=== PATIENT | male | born 1955 | race Caucasian/White ===

== ENCOUNTER 2019-04-15 07:42 | Outpatient (CLI) | payer OTHER, SELFPAY ==
--- NOTE | 2019-04-15 08:11 | CT_ITS ---
WS: [id number] CT scan of the chest without IV contrast, additional two-dimensional coronal and sagittal reconstruct ion was performed. 04/15/2019 Clinical Data: PULMONARY NODULE Comparison: PA and lateral chest, 04/11/2016 DLP: 982.36 mGy-cm All CT scans at [facility] use at least one of these dose optimization techniques: automat ed exposure control; mA and/or kV adjustment per patient size (includes targeted exams where dose is matched to clinical indication); or iterative reconstruction. Findings: There are 2 small nodules, one is in the right middle lobe seen best on axial image 29 of 62 measurin g 0.75 cm, the other in the lingula adjacent to the left heart border measuring 0.50 cm seen best on axial image 31 of 62. No masses or effusions are seen. The heart size is normal with no pericardial effusion. The pulmonar y arterial system and thoracic aorta demonstrate no abnormalities or dilatations. There is no axillar y or significant mediastinal adenopathy. The upper abdomen shows no abnormalities. 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 CT/CT chest wo con [id number] Impression: 1. 2 small nodules, one in the right middle lobe and the other in the lingula a nd recommend repeat CT chest in 6 months. 2. No acute cardiopulmonary disease is seen.
== END 2019-04-15 07:43 | disposition home or self-care (01) ==
LOC: RADWPI 07:46
PROVIDERS: PCP Nurse Practitioner; Visit Provider Nurse Practitioner
DX: R91.8 Other nonspecific abnormal finding of lung field (principal)
CPT/HCPCS: 71250

== ENCOUNTER → 2019-10-10 14:37 | Outpatient (BNVA) | payer OTHER, SELFPAY | PROVIDERS: PCP Nurse Practitioner; Visit Provider Nurse Practitioner Family | DX: M25.562 Pain in left knee (principal); S86.912A Strain of unspecified muscle(s) and tendon(s) at lower leg level, left leg, initial encounter; X58.XXXA Exposure to other specified factors, initial encounter; Z68.29 Body mass index [BMI] 29.0-29.9, adult; F17.220 Nicotine dependence, chewing tobacco, uncomplicated | CPT/HCPCS: 73562 ==

== ENCOUNTER 2019-10-27 23:48 | Emergency (ER) | payer OTHER, SELFPAY ==
[2019-10-27 23:48] VITALS: BP 136/78; PULSE 72; RESP 14; O2SAT 99
[2019-10-28 00:04] VITALS: BP 163/96; PULSE 111; RESP 18; TEMP 36.8; O2SAT 97; BMI 28.7
--- NOTE | 2019-10-28 00:33 | CTR_ITS ---
PROCEDURE INFORMATION: Exam: CT Head Without Contrast Exam date and time: 10/28/2019 12:36 AM Age: 64 years old Clinical indication: Injury or trauma; Injury history: Kicked by horse; Initial encounter; Blunt trauma (contusions or hematomas); Without loss of consciousness TECHNIQUE: Imaging protocol: Computed tomography of the head without contrast. Radiation optimization: All CT scans at this facility use at least one of these dose optimization techniques: automated exposure control; mA and/or kV adjustment per patient size (includes targeted exams where dose is matched to clinical indication); or iterative reconstruction. COMPARISON: No relevant prior studies available. RADIATION DOSE METRICS: Total DLP (mGy-cm): 868.26 FINDINGS: Brain: No acute intracranial hemorrhage or mass effect. No definite acute infarct by CT. Ventricles: Ventricle size is normal for age. Bones/joints: No definite acute skull fracture. Sinuses: Mild mucosal thickening in the left maxillary sinus. Included paranasal sinuses otherwise appear essentially clear. Mastoid air cells: No significant acute finding. Soft tissues: Evidence for soft tissue injury/scalp laceration in the left frontal and parietal regions. CT/CT head wo con* [id number] IMPRESSION: 1. No acute intracranial hemorrhage or mass effect. 2. Other findings discussed above. Radiation Dose CTDIVOL = (mGy): DLP = 868.26 (mGy-cm)
--- NOTE | 2019-10-28 00:48 | ED_ITS ---
HPI - Head Injury General: Chief complaint: Head Injury Stated complaint: head lac Time Seen by Provider: 10/28/19 00:30 Source: patient Mode of arrival: ambulatory Limitations: no limitations History of Present Illness: HPI Narrative: Patient was at his home in [facility] riding a horse when he got spooked and bucked him from the horse. Patient hit the ground with his head and does not know if the horse kicked him or what but he ended up sustaining 2 lacerations to the scalp. Patient has a linear laceration to the frontal center scalp, and a curved laceration to the left parietal area of the scalp. Patient recalls the event and denies any loss of consciousness. Patient does have a history of hypertension, alcohol use. Patient does report that he takes 1 alprazolam in the morning each day and did take a 7-1/2 hydrocodone prior to coming to the ER. Complaint: head injury Review of Systems General: Reports: 10 or more systems reviewed and unremarkable except in HPI and below Skin/Breast: Reports: other (scalp laceration) PFS ED PFSH: Medical History (Updated 10/28/19 @ 00:55 by MONI Del Cid) Strain of left knee Social History (Updated 10/10/19 @ 14:28 by Damaris Wagner LPN) Smoking and tobacco status: current every day smoker smokeless tobacco Physical Exam Const: COMMON NORMALS: no acute distress and patient oriented x3 GENERAL APPEARANCE: cooperative HENMT: COMMON NORMALS: normocephalic, TM's normal bilaterally and Normal external nose present HEAD & SCALP: normal to inspection and normocephalic NOSE: Normal external nose present TYMPANIC MEMBRANE: TM's normal bilaterally MOUTH: Normal oral and palatal mucosa present and other (Bruising and swelling to the lower lip. No dental injury is noted.) THROAT: posterior oropharynx normal Eye: GENERAL EYE: appearance normal, both eyes and all related structures Neck/C-Spine: COMMON NORMALS: full ROM Lymph: LYMPHATIC: no lymphadenopathy noted Chest: COMMONS NORMALS: normal inspection of the chest Resp: COMMON NORMALS: normal respiratory effort EFFORT & INSPECTION: Yes able to speak in complete sentences Cardio: COMMON NORMALS: regular rate and regular rhythm RATE: regular rate RHYTHM: regular rhythm GI: COMMON NORMALS: non-tender : COMMON NORMALS: Yes no CVA tenderness BLADDER/KIDNEY EXAM: Yes no CVA tenderness Back/Pelvis: COMMON NORMALS: no CVA tenderness and thoracic and lumbar spine normal to inspection Extremity: COMMON NORMALS: normal to inspection Neuro: COMMON NORMALS: patient oriented x3 and moves all extremities Psych: COMMON NORMALS: mental status grossly normal and cooperative Skin: NARRATIVE SKIN EXAM: 5 cm well approximated linear laceration to the frontal scalp, 6 cm curved laceration to the left parietal area of the scalp. Procedures Laceration Laceration 1: Site: scalp Size (cm): 5 Depth: simple, single layer Amount of anesthesia used (mL): 4 Pre-repair: wound explored, irrigated extensively and deep structures intact Size (cm): other (staple) Number of sutures: 4 Laceration 2: Site: scalp Size (cm): 6 Description: linear (curved) Depth: simple, single layer Local Anesthetic: lidocaine 1% and with epi Amount of anesthesia used (mL): 6 Pre-repair: wound explored and irrigated extensively Skin layer closed with: other (staple) Number of sutures: 7 Technique: simple, interrupted Course Vital Signs: Vital signs: Vital Signs Temperature 98.3 F 10/28/19 00:04 Pulse Rate 72 10/28/19 01:48 Respiratory Rate 16 10/28/19 01:48 Blood Pressure 132/62 10/28/19 01:48 Pulse Oximetry 99 10/28/19 01:48 MDM - Head Injury MDM Narrative: Medical decision making narrative: Patient comes in for evaluation after being thrown from a horse. Patient sustained 2 lacerations to his scalp. Patient does not know for sure if horse had kicked at him. No focal neural deficits were noticed on exam. No blood was noted in the nose or ear canals. Posterior pharynx was clear. Patient had no pain in the chest wall or cervical spine or lumbar and thoracic spine. Abdomen soft nontender. Patient moves all extremities well without difficulty. Differential diagnosis includes but not limited to laceration, skull fracture, intracranial bleeding, concussion. CT scan was negative for any bleeding or skull fracture. Patient reported that his tetanus shot was up-to-date. Reviewed exam with patient and recommendations for further treatment and follow-up. Patient reported understanding agreed to plan. Reviewed postprocedure care for laceration repair. Patient reported understanding. Discharge Plan Discharge Patient Disposition: Home Clinical Impression: Scalp laceration Qualifiers: Encounter type: initial encounter Qualified Code(s): S01.01XA - Laceration without foreign body of scalp, initial encounter Head injury Qualifiers: Encounter type: initial encounter Qualified Code(s): S09.90XA - Unspecified injury of head, initial encounter Condition: Stable Prescriptions: New hydrocodone-acetaminophen 5-325 mg tablet 1 tab PO Q6H PRN (Reason: pain) Qty: 7 RF: 0 No Action alprazolam [Xanax] 0.5 mg tablet 0.5 mg PO DAILY RF: 0 isosorbide mononitrate 120 mg tablet extended release 24 hr 120 mg PO DAILY RF: 0 ibuprofen 800 mg tablet 800 mg PO Q8H PRN (Reason: pain) 30 Days Qty: 60 RF: 0 Discharge Orders: Discharge Order (Routine); Ordered 10/28/19 Ordered By: Eugenio Westbrook Referrals: Ruby Alberto APN [Primary Care Provider] - Discharge Diet: Usual diet Discharge Activity: Increase activity as tolerated Patient Instructions: Laceration (ED), Concussion (ED) Activity Restrictions/Additional Instructions: Keep wounds clean and dry. Light activity for the next couple of days. Avoid repeat head injury. Drink plenty of water. Use acetaminophen as needed for headache. Follow-up with primary care in 1 week for removal of nita. Return to the emergency department for new concerns. Discharge Date/Time: 10/28/19 01:49 Coding Level of Care Code ED Outsole Molder for Vasile Fwliv Exam Comprehensive
[2019-10-28 01:48] VITALS: BP 132/62; PULSE 72; RESP 16; O2SAT 99
== END 2019-10-28 01:49 | disposition home or self-care (01) ==
PROVIDERS: Emergency Provider Nurse Practitioner Family; PCP Nurse Practitioner
DX: S01.01XA Laceration without foreign body of scalp, initial encounter (principal); F17.210 Nicotine dependence, cigarettes, uncomplicated; V80.010A Animal-rider injured by fall from or being thrown from horse in noncollision accident, initial encounter
CPT/HCPCS: 12004; 12345; 70450; 99281; 99283

== ENCOUNTER 2023-11-20 10:29 | Emergency (ER) | payer MEDICARE, SELFPAY ==
[2023-11-20 10:31] VITALS: BP 181/92; PULSE 68; O2SAT 98
--- NOTE | 2023-11-20 10:42 | ED.C_ITS ---
HPI - Psych General: Chief Complaint: Psychiatric Symptoms Stated Complaint: mhe Time Seen by Provider: 11/20/23 10:30 Source: patient Mode of arrival: ambulatory Limitations: no limitations History of Present Illness: 68-year-old male who is here from the in patient went to having a suicide screening questioning in the clinic he states that they had asked him all his questions and he states he thought it was ridiculous and at the end of it he states this is what he think up with serial killer. Patient was sent down here for psych eval. Patient adamantly denies being suicidal he states he was just kidding with his statements because he was frustrated with the questioning he has no history of psychiatric issues Associated symptoms: Deny depression Related Data Home Medications Medication Instructions Recorded Confirmed alprazolam 0.5 mg tablet (Xanax) 0.5 mg PO DAILY 10/10/19 11/20/23 isosorbide mononitrate 120 mg 120 mg PO DAILY 10/10/19 11/20/23 tablet,extended release 24 hr Previous Rx's Medication Instructions Recorded ibuprofen 800 mg tablet 800 mg PO Q8H PRN pain 30 days #60 10/10/19 tabs fluticasone propionate 50 2 spray intranasal DAILY #16 grams 04/10/22 mcg/actuation nasal spray,suspension (Flonase Allergy Relief) Allergies Allergy/AdvReac Type Severity Reaction Status Date / Time ragweed pollen Allergy Mild ALGY-Sneezi Verified 11/20/23 09:43 ng Review of Systems Const: Denies: fever(s), chills, body aches or change in appetite ENMT: Denies: throat pain or dental pain Card: Denies: chest pain Resp: Denies: dyspnea GI: Denies: abdominal pain, nausea, vomiting or diarrhea : Denies: dysuria Musc: Denies: neck pain or back pain Skin/Breast: Denies: rash Neuro: Denies: headache(s) Psych: Denies: depression PFSH ED PFSH: Medical History Strain of left knee Social History Smoking and tobacco/nicotine status: current every day tobacco/nicotine user Alcohol intake: current Alcohol intake frequency: 0-2 Drinks per Day Alcohol type: beer Substance/Drug Use: current Substance/Drug use frequency: Special occassions/opportunity only Physical Exam Const: COMMON NORMALS: no acute distress, patient oriented x3 and healthy appearing HENMT: COMMON NORMALS: normocephalic and atraumatic HEAD & SCALP: normocephalic and atraumatic Neck/C-Spine: COMMON NORMALS: full ROM and supple Chest: COMMONS NORMALS: normal inspection of the chest Resp: COMMON NORMALS: normal respiratory effort Extremity: COMMON NORMALS: normal to inspection and full ROM Neuro: COMMON NORMALS: patient oriented x3, moves all extremities and no focal motor deficits Psych: COMMON NORMALS: mental status grossly normal, Normal thought process present and cooperative THOUGHT PROCESS: Normal thought process present Skin: COMMON NORMALS: no rashes or lesions noted and no wounds GENERAL SKIN EXAM: no rashes or lesions noted Course Vital Signs: Vital signs: Vital Signs Pulse Rate 68 11/20/23 10:31 Blood Pressure 181/92 11/20/23 10:31 Pulse Oximetry 98 11/20/23 10:31 Oxygen Delivery Me thod Room Air 11/20/23 10:31 [facility] - Psych Medical Decision Making Patient presents here for psych eval I do not believe that he is suicidal or homicidal all question him I believe he was just joking and frustrated with the questioning he is not a threat to himself or others he stable for discharge and give him information for the crisis center he is return if worsening he understands reasons plan No radiology studies performed this visit Discharge Plan Discharge Patient Disposition: Home Clinical Impression: Well adult health check Condition: Stable Prescriptions: No Action alprazolam [Xanax] 0.5 mg tablet 0.5 mg PO DAILY isosorbide mononitrate 120 mg tablet extended release 24 hr 120 mg PO DAILY ibuprofen 800 mg tablet 800 mg PO Q8H PRN (Reason: pain) 30 Days Qty: 60 0RF fluticasone propionate [Flonase Allergy Relief] 50 mcg/actuation spr ay,suspension 2 spray intranasal DAILY Qty: 16 0RF Rx Instructions: administer into each nostril Discharge Orders: Discharge ED (Routine); Ordered 11/20/23 Ordered By: Ester Holliday Referrals: Ruby Alberto BULK TRUCK DRIVER [Primary Care Provider] - Discharge Diet: Advance as tolerated Discharge Activity: Resume usual activity Activity Restrictions/Additional Instructions: Follow-up with crisis center if having any depression or suicidal thoughts return to the ER if you have any worsening symptoms Coding Level of Care Code ED Creative Resource Manager for Vasile Golden
--- NOTE | 2023-11-20 10:47 | PC.NURSE ---
Dr. Holliday said to obtain only Heart rate and blood pressure for vital signs.
--- NOTE | 2023-11-20 11:04 | PC.NURSE ---
this patient discharged before this nurse was able to assess. pt discharge by kelsey farrell rn.
== END 2023-11-20 11:06 | disposition home or self-care (01) ==
PROVIDERS: Emergency Provider Emergency Medicine; PCP Nurse Practitioner
DX: Z00.8 Encounter for other general examination (principal); Z72.0 Tobacco use; Z12.11 Encounter for screening for malignant neoplasm of colon
CPT/HCPCS: 99202; 99281